=== PATIENT | male | born 1955 | race Caucasian/White ===

== ENCOUNTER 2017-08-31 11:25 | Day surgery (SDC) | payer OTHER ==
[~2017-08-31 11:25] MED LIST: Lactated Ringers 1,000 ML IV SCH; Sodium Chloride 0.9% 10 ML Syringe FLUSH PRN
--- NOTE | 2017-08-31 13:11 | PCM.HPR ---
H & P Addendum review - H & P Addendum Review Date of Original H & P: 08/29/17 Date Reviewed: 08/31/17 Time Reviewed: 13:11 Patient was Examined: No Changes
[2017-08-31] MEDS ORDERED: Propofol 200 MG/20 ML SDV ONE ×2 (13:14→13:20)
[2017-08-31] MEDS ORDERED: fentaNYL 100 MCG/2 ML SDV ONE ×2 (13:14→13:20)
[2017-08-31] MEDS ORDERED: Midazolam 1 MG/ML 2 ML SDV ONE ×2 (13:14→13:20)
--- NOTE | 2017-08-31 13:44 | PCM.OPNOTE ---
- General Post-Op/Procedure Note Date of Surgery/Procedure: 08/31/17 Operative Procedure(s): Colonoscopy Findings: normal Pre Op Diagnosis: Colon Screening Post-Op Diagnosis: Same Anesthesia Technique: MARY Primary Surgeon: Francisco Posada Anesthesia Provider: Sue Stephens Complications: None Condition: Good Free Text/Narrative:: Intake & Output 08/30/17 08/31/17 08/31/17 22:59 06:59 14:59 Intake Total 800 Balance 800
--- NOTE | 2017-08-31 15:01 | OR ---
Date of Procedure: 08/31/2017 PREOPERATIVE DIAGNOSIS: Colon screening. POSTOPERATIVE DIAGNOSIS: Normal colonoscopy. PROCEDURE: Colonoscopy. ANESTHESIA: IV sedation. PROCEDURE IN DETAIL: The patient was brought to the procedure room where he was placed on his left side and IV sedation administered. Digital rectal exam was performed which was normal. Colonoscope was inserted and advanced to the level of the cecum without difficulty. Cecal position was confirmed by identifying the appendiceal lumen and ileocecal valve. Prep was good, and surfaces were well visualized. Upon withdrawing the scope, the ascending, transverse, and descending colon were normal in appearance. Sigmoid colon and rectum were normal. Retroflexion was normal. Air was removed and the scope withdrawn. The patient tolerated the procedure well and returned to recovery in stable condition. Recommend routine colon screening again in 10 years. CHRISTINE SALTER MD /[id number]
== END 2017-08-31 15:33 | disposition home or self-care (01) ==
LOC: LL.SDS 11:25
PROVIDERS: ATTEND Surgery
DX: Z12.11 Encounter for screening for malignant neoplasm of colon (principal); I10 Essential (primary) hypertension; Z23 Encounter for immunization; Z79.899 Other long term (current) drug therapy; Z98.890 Other specified postprocedural states; F17.210 Nicotine dependence, cigarettes, uncomplicated
CPT/HCPCS: 45378; J2250; J2704; J3010; J7120; 00810-QZ